=== PATIENT | female | born 1980 | race Hispanic/Latino ===

== ENCOUNTER 2017-12-26 04:01 | Emergency (ER) | payer OTHER ==
--- NOTE | 2017-12-26 04:42 | ED PDOC ---
HPI: Skin/Bite Injury Time Seen by Provider: 12/26/17 04:10 Chief Complaint (Nursing): Abdominal Pain Chief Complaint (Provider): Skin History Per: Patient History/Exam Limitations: no limitations Onset/Duration Of Symptoms: Days (x4) Current Symptoms Are (Timing): Still Present Location Of Injury: Anterior: Abdomen Quality Of Symptoms: Painful Additional Complaint(s): 37 year old female presents to ED with complaints of pain around site since operation 4 days ago and has no past medical history. Patient denies filling any pain medication prescriptions since operation. Also notes bilateral breast pain and engorgement. Confirms that she has not nursed in 7 hours and does not own a pump. (-) fever, drainage, vomiting, or urinary symptoms. PCP:[facility] Past Medical History Reviewed: Historical Data, Nursing Documentation, Vital Signs Vital Signs: Last Vital Signs Temp 98 F 12/26/17 13:33 Pulse 81 12/26/17 13:33 Resp 18 12/26/17 13:33 BP 120/79 12/26/17 13:33 Pulse Ox 97 12/26/17 13:33 - Medical History PMH: No Chronic Diseases - Surgical History Surgical History: (x1 4 days ago) - Family History Family History: States: Unknown Family Hx - Living Arrangements Living Arrangements: With Family - Allergies Allergies/Adverse Reactions: Allergies Allergy/AdvReac Type Severity Reaction Status Date / Time No Known Allergies Allergy Verified 12/26/17 04:23 Review of Systems ROS Statement: Except As Marked, All Systems Reviewed And Found Negative Constitutional: Negative for: Fever Gastrointestinal: Negative for: Vomiting Genitourinary Female: Negative for: Dysuria, Frequency, Incontinence, Hematuria Skin: Positive for: Other (pain to bilateral breasts and site of .) Physical Exam - Physical Exam Appears: Positive for: Well, Non-toxic, No Acute Distress Skin: Positive for: Normal Color, Warm, Dry Neck: Positive for: Normal Cardiovascular/Chest: Positive for: Regular Rate, Rhythm, Other (slight erythma diffusely around engorged area of R breast) Respiratory: Positive for: Normal Breath Sounds Gastrointestinal/Abdominal: Positive for: Soft, Other (c section scar is clean dry and inact. no dehiscence noted. however beneath the scar is an area of swelling, tenderness and erythema ) Extremity: Positive for: Normal ROM Neurologic/Psych: Positive for: Alert, Oriented - Laboratory Results Result Diagrams: 12/26/17 05:20 12/26/17 05:20 - ECG O2 Sat by Pulse Oximetry: 99 (RA) Pulse Ox Interpretation: Normal Medical Decision Making Medical Decision Makin Initial impression: red and swollen area sp csection rule out 1 early cellulitis around incision site and 2 breast engorgement Initial plan: * Labs * NS IV * Toradol 30mg IV * Unasyn IVPB * BCx 0622 Labs reviewed: patient has elevated LFTs Upon re-evaluation, patient notes persistence of pain. * CTA A/P (IV contrast) 0700 Patient will be signed out to Dr. Frias pending CT results/reeval. Scribe Attestation: Documented by Elda Kumar acting as a scribe for Eusebio Vasquez MD. Scribe Attestation: All medical record entries made by the Scribe were at my direction and personally dictated by me. I have reviewed the chart and agree that the record accurately reflects my personal performance of the history, physical exam, medical decision making, and the department course for this patient. I have also personally directed, reviewed, and agree with the discharge instructions and disposition. Disposition - Clinical Impression Clinical Impression: complication, Wound hematoma, Elevated blood pressure reading - Patient ED Disposition Is Patient to be Admitted: Transfer of Care Counseled Patient/Family Regarding: Studies Performed, Diagnosis, Need For Followup - Disposition Disposition: Routine/Home Disposition Time: 07:00 Condition: FAIR Additional Instructions: You left hospital against medical advice. See your OB doctor today as directed. You have complications which may require further treatment and hospitalization/ Dr Abraham is aware of your case, discussed at 1240pm Instructions: Leaving Against Medical Advice, What to Watch for After You Have a Baby, Hypertension (ED) Forms: [employer] (Azerbaijani) Patient Signed Over To: Saji Frias III Handoff Comments: pending CT
[2017-12-26] MEDS ORDERED: Sodium Chloride 0.9% 1,000 ML IV STA (05:01)
[2017-12-26 05:49] LABS: BASO # 0.1 K/uL (0.0-0.2); BASO % 0.8 % (0.0-2.0); EOS # 0.3 K/uL (0.0-0.7); EOS % 2.7 % (0.0-4.0); HEMOGLOBIN 10.7 g/dL (12.0-16.0); LYMPH # 1.2 K/uL (1.0-4.3); LYMPH % 13.1 % (20.0-40.0); MEAN CELL VOLUME 86.8 fl (81.0-99.0); MEAN CORPUSCULAR HEMOGLOBIN 28.8 pg (27.0-31.0); MEAN CORPUSCULAR HGB CONC 33.2 g/dL (33.0-37.0); MEAN PLATELET VOLUME 7.6 fl (7.2-11.7); MONO # 0.7 K/uL (0.0-0.8); MONO % 7.6 % (0.0-10.0); NEUT % 75.8 % (50.0-75.0); RBC 3.71 Mil/uL (3.80-5.20); RED CELL DISTRIBUTION WIDTH 14.3 % (11.5-14.5); WHITE BLOOD COUNT 9.3 K/uL (4.8-10.8)
[2017-12-26 05:56] LABS: ALT/SGPT 139 U/L (9-52); AST/SGOT 134 U/L (14-36); BLOOD UREA NITROGEN 13 mg/dl (7-17); CALCIUM 9.3 mg/dL (8.4-10.2); GFR AFRICAN-AMERICAN > 60; GFR NON-AFRICAN AMERICAN > 60
[2017-12-26] MEDS ORDERED: Iohexol 300 100 ML IJ ONE (06:43)
[2017-12-26] MEDS ORDERED: Sodium Chloride 0.9% 100 ML ONE (06:43)
--- NOTE | 2017-12-26 08:14 | CT ---
EXAM: CT Abdomen and Pelvis With Intravenous Contrast CLINICAL HISTORY: 37 years old, female; Pain; Abdominal pain; Prior surgery; Surgery date: 3-7 days post-operative; Surgery type: ; Additional info: Abd pain, cellulitis under scar of c section TECHNIQUE: Axial computed tomography images of the abdomen and pelvis with intravenous contrast. All CT scans at this facility use one or more dose reduction techniques, viz.: automated exposure control; ma/kV adjustment per patient size (including targeted exams where dose is matched to indication; i.e. head); or iterative reconstruction technique. 580 images are submitted. Axial images are submitted in soft tissue and lung windows. Coronal and sagittal reformatted images were created and reviewed. CONTRAST: 85 mL of [id number] administered intravenously. COMPARISON: No relevant prior studies available. FINDINGS: Lung bases: There is bibasilar atelectasis. Heart: Small pericardial fluid. Mediastinum: Small hiatal hernia. ABDOMEN: Liver: Possible enlarged possible fatty liver. Gallbladder and bile ducts: Unremarkable. No ductal dilation. Pancreas: Unremarkable. No mass. No ductal dilation. Spleen: Unremarkable. No splenomegaly. Adrenals: Unremarkable. No mass. Kidneys and ureters: Unremarkable. No solid mass. No hydronephrosis. Stomach and bowel: Large amount of stool in the colon. Correlation with patient's clinical history of constipation is recommended. Possible duodenal diverticulum. There is a nonobstructive minimal bowel containing hernia is seen on image 85 series 3.. There are nonspecific fluid filled small bowel loops. These findings can represent ileus versus enteritis versus slow transit versus peristalsis. PELVIS: Appendix: Prominent appendix with intraluminal gas which volume averages with the unopacified bowel. Bladder: Bladder distention. Correlation with patient's voiding status is recommended. Reproductive: There is gas and fluid in the endometrial canal. Correlation with clinical data is recommended if endometritis is clinically suspected. There is enlarged uterus. Prominent right more than left ovarian veins. ABDOMEN and PELVIS: Intraperitoneal space: Unremarkable. No free air. No significant fluid collection. Bones/joints: L5-S1 degenerative disc disease. No acute fracture. No dislocation. Soft tissues: Suprapubic subcutaneous soft tissue infiltration fluid and emphysema representing postsurgical etiology. The radiographic differential includes infectious etiology.Correlation with clinical evaluation and further workup or followup as recommended by patient's clinical data. The subcutaneous suprapubic fluid collection measures 5.6 x 1.8 cm. this can represents seroma versus hematoma. An early abscess is not excluded. Vasculature: There is heterogeneous hyperdense vessels involving the fundus of the uterus with gas on this enhanced examination may represent enhancing uterine vessels. This decreases the sensitivity of the examination to evaluate for acute vascular bleed. Correlation with patient's hemodynamic status is recommended. There is bulbous prominence of posterior uterine body seen on image 74 series 602. There is gas in the myometrium seen on image 66. 602. This could represent postoperative intramural hematoma versus a fibroid. Correlation with patient's clinical gynecology history is recommended. The IVC demonstrate normal caliber. Lymph nodes: Unremarkable. No enlarged lymph nodes. IMPRESSION: 1. Suprapubic subcutaneous soft tissue infiltration fluid and emphysema representing postsurgical etiology. The radiographic differential includes infectious etiology. 2. The subcutaneous suprapubic fluid collection measures 5.6 x 1.8 cm. this can represents seroma versus hematoma. An early abscess is not excluded. 3. There is heterogeneous hyperdense vessels involving the fundus of the uterus with gas on this enhanced examination may represent enhancing uterine vessels. This decreases the sensitivity of the examination to evaluate for acute vascular bleed. However the IVC demonstrate normal caliber without evidence of flattening. Patient is hemodynamically stable emergency room attending. 4. There is bulbous prominence of posterior uterine body seen on image 74 series 602. There is gas in the myometrium seen on image 66. 602. This could represent postoperative intramural hematoma versus a fibroid. Correlation with patient's clinical gynecology history is recommended. Correlation with clinical gynecology history and evaluation and further workup or followup as recommended by patient's clinical data. Clinical history of 5 days ago. CRITICAL RESULT: The study was personally discussed on the telephone with [Dr. Frias for [facility] ] on 12/26/2017 8:10 AM EDT. The results were understood and acknowledged.
--- NOTE | 2017-12-26 08:41 | ED PDOC ---
- Laboratory Results Result Diagrams: 12/26/17 05:20 12/26/17 05:20 - ECG O2 Sat by Pulse Oximetry: 99 (RA) Medical Decision Making Medical Decision Making: IMPRESSION: 1. Suprapubic subcutaneous soft tissue infiltration fluid and emphysema representing postsurgical etiology. The radiographic differential includes infectious etiology. 2. The subcutaneous suprapubic fluid collection measures 5.6 x 1.8 cm. this can represents seroma versus hematoma. An early abscess is not excluded. 3. There is heterogeneous hyperdense vessels involving the fundus of the uterus with gas on this enhanced examination may represent enhancing uterine vessels. This decreases the sensitivity of the examination to evaluate for acute vascular bleed. However the IVC demonstrate normal caliber without evidence of flattening. Patient is hemodynamically stable emergency room attending. 4. There is bulbous prominence of posterior uterine body seen on image 74 series 602. There is gas in the myometrium seen on image 66. 602. This could represent postoperative intramural hematoma versus a fibroid. Correlation with patient's clinical gynecology history is recommended. Correlation with clinical gynecology history and evaluation and further workup or followup as recommended by patient's clinical data. Clinical history of 5 days ago. CRITICAL RESULT: The study was personally discussed on the telephone [facility] on 12/26/2017 8:10 AM EDT. The results were understood and acknowledged. Dictated By: OSEI CORNELIUS Dictated Date/Time: 12/26/17812 Signed By: OSIE CORNELIUS MD Date Signed: 812 Transcribed By: AMELIA Transcribe Date/Time : 12/26/17812 STEVE/DIMITRIOS d/w [employer] collection team lead dr Aragon who will evaluate patient Dr Aragon rec hospitalization, he discussed w highway technician Dr Horn Patient does not want to stay, risks/benefits discussed at length and all questions answered She signed AMA after discussion. Dr Abraham her OB at [facility] contacted and given hand off to assume her care. Patient was offered transport in ambulance but she refused and wished to take care service. Risks of potential deterioration en route discussed, while low, do exist. Disposition Counseled Patient/Family Regarding: Studies Performed, Diagnosis, Need For Followup - Clinical Impression Clinical Impression: complication, Wound hematoma, Elevated blood pressure reading - POA Present On Arrival: None - Disposition Disposition: AGAINST MEDICAL ADVICE Disposition Time: 10:00 Condition: FAIR Additional Instructions: You left hospital against medical advice. See your OB doctor today as directed. You have complications which may require further treatment and hospitalization/ Dr Abraham is aware of your case, discussed at 1240pm Instructions: Leaving Against Medical Advice, What to Watch for After You Have a Baby, Hypertension (ED) Forms: [employer] ([place]) Against Medical Advice - AMA Patient Left Against Medical Advice: The patient declines admission to the hospital and wishes to leave the Emergency Department. This action is against my medical advice. This decision was made with informed refusal. The patient was told that admission to the hospital is necessary. Explanation of the reasons why were discussed. The risks of leaving were explained to the patient and include, but are not limited to, worsening of known or currently unknown conditions, permanent disability and from undiagnosed or untreated conditions. The patient has the capacity to make this informed decision and understands my explanation of the current medical problem and risks of leaving. The patient voluntarily accepts these risks and signed an AMA form documenting our conversation. The patient was given the opportunity to ask questions and reconsider. The patient was encouraged to return to the Emergency Department at any time for further care.
[2017-12-26 09:51] LABS: SQUAMOUS EPITHIAL < 1 /hpf (0-5); URINE BILIRUBIN NEGATIVE (NEGATIVE); URINE BLOOD MODERATE (NEGATIVE); URINE CLARITY CLEAR (Clear); URINE COLOR STRAW (YELLOW); URINE GLUCOSE (UA) NEG (Normal); URINE LEUKOCYTE ESTERASE NEG Leu/uL (Negative); URINE PROTEIN NEGATIVE (NEGATIVE); URINE UROBILINOGEN 0.2-1.0 mg/dL (0.2-1.0)
--- NOTE | 2017-12-26 09:59 | CP.PCM.CON ---
History of Present Illness - History of Present Illness History of Present Illness: 37yo S/ P C/S for failure to progress at [facility]. C/O incision pain. She was unable to slate picker prescription from [facility]. She has pain localized. Sometimes pain is under umbilicus/tender to touch/hard? Otheriwse, incision pain is localized; non-radiating. No KIM; no visual dist Review of Systems - Constitutional Constitutional: absent: Chills, Fatigue, Headache, Night Sweats - Breasts Breasts: Pain, Swelling Additional comments: Lactating - Cardiovascular Cardiovascular: absent: Chest Pain, Chest Pain at Rest, Dyspnea, Palpitations - Respiratory Respiratory: absent: Dyspnea, Chest Congestion, Excessive Mucous Production - Gastrointestinal Gastrointestinal: Abdominal Pain Additional comments: Around incision and under umbilicus Past Patient History - Infectious Disease Hx of Infectious Diseases: None - Past Medical History & Family History Past Medical History?: No - Past Social History Smoking Status: Never Smoked Chewing Tobacco Use: No Cigar Use: No Alcohol: None Drugs: Denies Home Situation {Lives}: With Family Domestic Violence: Negative - PSYCHIATRIC Hx Substance Use: No - SURGICAL HISTORY Hx Section: Yes Meds Allergies/Adverse Reactions: Allergies Allergy/AdvReac Type Severity Reaction Status Date / Time No Known Allergies Allergy Verified 12/26/17 04:23 Physical Exam - Constitutional Appears: Non-toxic - Head Exam Head Exam: NORMAL INSPECTION - Respiratory Exam Respiratory Exam: NORMAL BREATHING PATTERN - Cardiovascular Exam Cardiovascular Exam: REGULAR RHYTHM - GI/Abdominal Exam GI & Abdominal Exam: Soft. absent: Rebound, Rigid, Tenderness Additional comments: Uterus firm below umbilicus; no liver enlargement - Incision - clean; no redness ; skin glue in place over incision Results - Vital Signs Recent Vital Signs: Last Vital Signs Temp 99 F 12/26/17 09:38 Pulse 88 12/26/17 09:38 Resp 16 12/26/17 09:38 BP 129/92 H 12/26/17 09:38 Pulse Ox 98 12/26/17 09:38 - Labs Result Diagrams: 12/26/17 05:20 12/26/17 05:20 Labs: Laboratory Results - last 24 hr 12/26/17 12/26/17 12/26/17 05:20 05:20 09:35 WBC 9.3 RBC 3.71 L Hgb 10.7 L Hct 32.2 L MCV 86.8 MCH 28.8 MCHC 33.2 RDW 14.3 Plt Count 398 MPV 7.6 Neut % (Auto) 75.8 H Lymph % (Auto) 13.1 L [place] % (Auto) 7.6 Eos % (Auto) 2.7 Baso % (Auto) 0.8 Neut # (Auto) 7.0 Lymph # (Auto) 1.2 [place] # (Auto) 0.7 Eos # (Auto) 0.3 Baso # (Auto) 0.1 Sodium 138 Potassium 4.2 Chloride 105 Carbon Dioxide 23 Anion Gap 14 BUN 13 Creatinine 0.5 L Est GFR ( Amer) > 60 Est GFR (Non-Af Amer) > 60 Random Glucose 77 Calcium 9.3 Total Bilirubin 0.3 AST 134 H ALT 139 H Alkaline Phosphatase 128 H Total Protein 6.1 L Albumin 3.0 L Globulin 3.1 Albumin/Globulin Ratio 1.0 Urine Color Straw Urine Clarity Clear Urine pH 8.0 Ur Specific [place] 1.012 Urine Protein Negative Urine Glucose (UA) Neg Urine Ketones Negative Urine Blood Moderate Urine Nitrate Negative Urine Bilirubin Negative Urine Urobilinogen 0.2-1.0 Ur Leukocyte Esterase Neg Urine RBC (Auto) 24 H Urine Microscopic WBC 3 Ur Squamous Epith Cells < 1 Assessment & Plan - Assessment and Plan (Free Text) Assessment: S/P Elevated BP (probably secondary to incision pain) Subcutaneous fluid collection - prob seroma Elevated LFT's Plan: pain management, check UA for protein/coag profile , monitor BP, will consult MARCO A, will contact her PMD at [facility] - Date & Time Date: 12/26/17 Time: 09:30
[2017-12-26 10:12] LABS: INR 0.9 (0.9-1.2); PARTIAL THROMBOPLASTIN TIME 28.4 Seconds (25.6-37.1); PROTHROMBIN TIME 10.1 Seconds (9.8-13.1)
[2017-12-26] MEDS ORDERED: Oxycodone/Acetaminophen 5/325 mg Tab PO STA (10:23)
[2017-12-26] MEDS ORDERED: Oxycodone/Acetaminophen 5/325 mg Tab ONE (10:45)
--- NOTE | 2017-12-26 11:42 | CP.PCM.CON ---
Past Patient History - Infectious Disease Hx of Infectious Diseases: None - Past Medical History & Family History Past Medical History?: No - Past Social History Smoking Status: Never Smoked Chewing Tobacco Use: No Cigar Use: No Alcohol: None Drugs: Denies Home Situation {Lives}: With Family Domestic Violence: Negative - PSYCHIATRIC Hx Substance Use: No - SURGICAL HISTORY Hx Section: Yes Meds Allergies/Adverse Reactions: Allergies Allergy/AdvReac Type Severity Reaction Status Date / Time No Known Allergies Allergy Verified 12/26/17 04:23 Results - Vital Signs Recent Vital Signs: Last Vital Signs Temp 99 F 12/26/17 09:38 Pulse 80 12/26/17 10:05 Resp 16 12/26/17 10:05 BP 123/71 12/26/17 10:05 Pulse Ox 98 12/26/17 09:38 - Labs Result Diagrams: 12/26/17 05:20 12/26/17 05:20 Labs: Laboratory Results - last 24 hr 12/26/17 12/26/17 12/26/17 05:20 05:20 09:35 WBC 9.3 RBC 3.71 L Hgb 10.7 L Hct 32.2 L MCV 86.8 MCH 28.8 MCHC 33.2 RDW 14.3 Plt Count 398 MPV 7.6 Neut % (Auto) 75.8 H Lymph % (Auto) 13.1 L [place] % (Auto) 7.6 Eos % (Auto) 2.7 Baso % (Auto) 0.8 Neut # (Auto) 7.0 Lymph # (Auto) 1.2 [place] # (Auto) 0.7 Eos # (Auto) 0.3 Baso # (Auto) 0.1 PT INR APTT Sodium 138 Potassium 4.2 Chloride 105 Carbon Dioxide 23 Anion Gap 14 BUN 13 Creatinine 0.5 L Est GFR ( Amer) > 60 Est GFR (Non-Af Amer) > 60 Random Glucose 77 Calcium 9.3 Total Bilirubin 0.3 AST 134 H ALT 139 H Alkaline Phosphatase 128 H Total Protein 6.1 L Albumin 3.0 L Globulin 3.1 Albumin/Globulin Ratio 1.0 Urine Color Straw Urine Clarity Clear Urine pH 8.0 Ur Specific [place] 1.012 Urine Protein Negative Urine Glucose (UA) Neg Urine Ketones Negative Urine Blood Moderate Urine Nitrate Negative Urine Bilirubin Negative Urine Urobilinogen 0.2-1.0 Ur Leukocyte Esterase Neg Urine RBC (Auto) 24 H Urine Microscopic WBC 3 Ur Squamous Epith Cells < 1 12/26/17 09:35 WBC RBC Hgb Hct MCV MCH MCHC RDW Plt Count MPV Neut % (Auto) Lymph % (Auto) [place] % (Auto) Eos % (Auto) Baso % (Auto) Neut # (Auto) Lymph # (Auto) [place] # (Auto) Eos # (Auto) Baso # (Auto) PT 10.1 INR 0.9 APTT 28.4 Sodium Potassium Chloride Carbon Dioxide Anion Gap BUN Creatinine Est GFR ( Amer) Est GFR (Non-Af Amer) Random Glucose Calcium Total Bilirubin AST ALT Alkaline Phosphatase Total Protein Albumin Globulin Albumin/Globulin Ratio Urine Color Urine Clarity Urine pH Ur Specific [place] Urine Protein Urine Glucose (UA) Urine Ketones Urine Blood Urine Nitrate Urine Bilirubin Urine Urobilinogen Ur Leukocyte Esterase Urine RBC (Auto) Urine Microscopic WBC Ur Squamous Epith Cells Assessment & Plan - Assessment and Plan (Free Text) Assessment: S/P C/S Subcutaneous fluid collection Elveted BP/LFT - possible pre-eclampsia Plan: Spoke with radiologist - subcutaneous collectoin 5x2 right under incision - not extending past fascia : With nurse present, I removed dermabond, probed incision with cotton tip applicator. Small amount of drainage noted...apply warm compress; dry dressing placed Also spoke with MFM, recommended admission monitor BP with starting Labetolol 100mg TID and MgSO4 1.5g/hr Condition explained to patient with treatment plan...she will speak with her . Earlier I called her OBGYN Dr Piter Abraham [phone] and left message with package maker. She stated that he would be in 15-20m, but I received no call back - Date & Time Date: 12/26/17 Time: 11:00
[2017-12-26 13:32] VITALS: RESP 18
[2017-12-26 13:34] VITALS: BP 120/79; PULSE 81; TEMP 98
[2017-12-27 19:26] VITALS: O2SAT 99
== END 2017-12-26 12:50 | disposition left against medical advice (07) ==
LOC: EDBD 04:01 → H.ER 04:01
DX: O90.9 Complication of the puerperium, unspecified (principal); R03.0 Elevated blood-pressure reading, without diagnosis of hypertension; R79.89 Other specified abnormal findings of blood chemistry; Z98.890 Other specified postprocedural states; G89.18 Other acute postprocedural pain; T14.8XXA Other injury of unspecified body region, initial encounter
CPT/HCPCS: 74177; 80053; 81003; 85025; 85610; 85730; 87040; 96365; 96375; 99285; J0295; J1885; J7040; Q9967